=== PATIENT | female | born 1950 | race Caucasian/White ===

== ENCOUNTER 2017-04-14 08:27 | Emergency (ER) | payer MEDICARE, BC ==
[~2017-04-14] VITALS: Ht 170.2 cm; Wt 88.0 kg
[2017-04-14] MEDS ORDERED: IOHEXOL 350 MG/ML 10 ML VIAL (for RAD DIAG) IVCONTRAST ONE (08:28)
[2017-04-14 08:30] VITALS: BP 155/77; PULSE 102; RESP 14; TEMP 97.7; O2SAT 96
[2017-04-14] MEDS ORDERED: CLINDAMYCIN INJ 900 MG in SODIUM CHLORIDE 0.9% INJ 100 ML IV ONE (09:00)
[2017-04-14] MEDS ORDERED: SODIUM CHLORIDE 0.9% FLUSH 10 ML FLUSH IVF PRN (09:00)
[2017-04-14] MEDS ORDERED: CLINDAMYCIN 900 MG/NS PREMIX 50 ML IV ONE (09:15)
--- NOTE | 2017-04-14 09:20 | PD ---
HPI . Leaking surgical wound Chief Complaint: Skin Problem Time Seen by Provider: 08:42 Travel History International Travel<30 days: No Contact w/Intl Traveler<30days: No Traveled to known affect area: No History of Present Illness HPI This patient presents stating that a recent surgical wound is leaking. She is status post partial colectomy 5 weeks ago. She states that her postoperative course was complicated by staph infection. She states she was in the hospital for total 13 days. She was treated with IV antibiotics. Her wound was left open for a period of time. She states that things finally got better and that everything seemed to be proceeding normally. She states that she and her family came here yesterday for vacation. When she awakened this morning, her bed sheets and clothing or so with bloody drainage. She reports no significant pain. She has not been running a fever. She does note that the surrounding skin is red and hot today. She denies any GI symptoms. No modifying factors. PFSH Past Medical History Cardiovascular Problems: Yes (HTN) High Cholesterol: Yes Diminished Hearing: No Hypertension: Yes ?: Not Past Surgical History Abdominal Surgery: Yes (COLON RESECTION) Social History Alcohol Use: No Tobacco Use: No Substance Use: No Allergies-Medications (Allergen,Severity, Reaction): Coded Allergies: Penicillins (Verified Allergy, Severe, 04/14/17) Review of Systems Except as stated in HPI: all other systems reviewed are Neg General / Constitutional: No: Fever, Chills Skin: Positive Change in Pigmentation, Positive Other Physical Exam Narrative GENERAL: Awake and alert in no acute distress. SKIN: warm/dry. Healing surgical wound on the right lower abdominal wall with surrounding erythema. There is leakage of serosanguineous fluid. It is mildly tender to palpation. HEAD: Normocephalic. EYES: Pupils equal and round. No scleral icterus. No injection or drainage. ENT: No nasal bleeding or discharge. Mucous membranes pink and moist. NECK: Trachea midline. Full range of motion without pain.. CARDIOVASCULAR: Regular rate and rhythm. Heart sounds are normal. RESPIRATORY: No accessory muscle use. Clear to auscultation. Breath sounds equal bilaterally. GASTROINTESTINAL: Abdomen soft. Nontender. Bowel sounds present. Nondistended. Except for tenderness in the area of erythema, her abdomen is soft and nontender. : Deferred MUSCULOSKELETAL: No obvious deformities. NEUROLOGICAL: Awake and alert. No obvious cranial nerve deficits. Motor grossly within normal limits. Normal speech. PSYCHIATRIC: Appropriate mood and affect; insight and judgment normal. Data Data Last Documented VS Vital Signs Date Time Temp Pulse Resp B/P (MAP) Pulse Ox O2 Delivery O2 Flow Rate FiO2 04/14/17 08:30 97.7 102 14 155/77 (103) 96 Orders Orders Basic Metabolic Panel (Bmp) (04/14/17 08:51) Complete Blood Count With Diff (04/14/17 08:51) Blood Culture (04/14/17 08:51) Wound Culture And Gram Stain (04/14/17 08:51) Iv Access Insert/Monitor (04/14/17 08:51) Sodium Chloride 0.9% Flush (Ns Flush) (04/14/17 09:00) Lactic Acid (04/14/17 08:51) Ct Abd/Pel W Iv Contrast(Rout) (04/14/17 08:51) Clindamycin 900 Mg Premix (Cleocin 900 M (04/14/17 09:15) Iohexol 350 Inj (Omnipaque 350 Inj) (04/14/17 08:28) Labs Laboratory Tests Test 04/14/17 09:00 White Blood Count 12.9 TH/MM3 Red Blood Count 4.08 MIL/MM3 Hemoglobin 12.0 GM/DL Hematocrit 35.2 % Mean Corpuscular Volume 86.4 FL Mean Corpuscular Hemoglobin 29.5 PG Mean Corpuscular Hemoglobin Concent 34.1 % Red Cell Distribution Width 13.4 % Platelet Count 585 TH/MM3 Mean Platelet Volume 6.2 FL Neutrophils (%) (Auto) 82.5 % Lymphocytes (%) (Auto) 10.6 % Monocytes (%) (Auto) 5.9 % Eosinophils (%) (Auto) 0.5 % Basophils (%) (Auto) 0.5 % Neutrophils # (Auto) 10.6 TH/MM3 Lymphocytes # (Auto) 1.4 TH/MM3 Monocytes # (Auto) 0.8 TH/MM3 Eosinophils # (Auto) 0.1 TH/MM3 Basophils # (Auto) 0.1 TH/MM3 CBC Comment DIFF FINAL Differential Comment Blood Urea Nitrogen 15 MG/DL Creatinine 0.75 MG/DL Random Glucose 134 MG/DL Calcium Level 8.9 MG/DL Sodium Level 137 MEQ/L Potassium Level 3.6 MEQ/L Chloride Level 103 MEQ/L Carbon Dioxide Level 27.3 MEQ/L Anion Gap 7 MEQ/L Estimat Glomerular Filtration Rate 78 ML/MIN Lactic Acid Level 1.0 mmol/L [facility] Medical Decision Making Medical Screen Exam Complete: Yes Emergency Medical Condition: Yes Differential Diagnosis My differential diagnosis includes but is not limited to localized wound infection, cellulitis, abscess Narrative Course This patient presents with a problem with a surgical wound. She is status post partial colectomy 5 weeks ago. She comes in to us this morning with the acute onset of drainage of serosanguineous fluid from the wound. She has also developed erythema, warmth and swelling around the surgical wound. CBC & BMP Diagram 04/14/17 09:00 Calcium Level 8.[address] abd/pelvis: 1. There is a elongated low density track with minimal extending from skin surface to the right lateral musculature which could represent fluid at the surgical site. No internal gas and no enhancing wall.. Surrounding this is a much larger area of induration of the subcutaneous fat. There is also some mild enhancement in the lateral abdominal musculature at the surgical site. 2. Bilateral hydronephrosis. I have discussed my findings with the patient and her . She states that she feels totally well. She appears to be a very reliable patient. I would like to try to treat her as an outpatient. I have given her strict instructions to return here if she starts to feel sick. Specifically, if she develops fever or generalized malaise and weakness, she should return to the emergency department. Sepsis Criteria SIRS Criteria (2 or more): Heart rate over 90, WBC > 56485, < 4000 or > 10% bands Sepsis Criteria (SIRS+source): Infect source susp/known Criteria Outcome: Meets SIRS criteria, Meets sepsis criteria Diagnosis Primary Impression: Sepsis affecting skin Patient Instructions: Cellulitis (DC), General Instructions Med/Other Pt SpecificInfo: Prescription(s) given Scripts Clindamycin (Clindamycin) 300 Mg Cap 600 MG PO Q8H for Infection for 10 Days, #60 CAP 0 Refills Prov: Theresa Crooks MD 04/14/17 Disposition: 01 DISCHARGE HOME Condition: Stable Theresa Crooks MD Apr 14, 2017 09:20
[2017-04-14 09:34] LABS: AUTOMATED NEUTROPHIL # 10.6 TH/MM3 (1.8-7.7); BASOPHIL # 0.1 TH/MM3 (0-0.2); BASOPHIL % 0.5 % (0.0-2.0); EOSINOPHIL # 0.1 TH/MM3 (0-0.4); EOSINOPHIL % 0.5 % (0.0-4.0); HEMATOCRIT 35.2 % (35.0-46.0); HEMO FLAGS DIFF FINAL; LYMPH % 10.6 % (9.0-44.0); LYMPHOCYTE # 1.4 TH/MM3 (1.0-4.8); MEAN CELL VOLUME 86.4 FL (80.0-100.0); MEAN CORPUSCULAR HEMOGLOBIN 29.5 PG (27.0-34.0); MEAN CORPUSCULAR HGB CONC 34.1 % (32.0-36.0); MONO % 5.9 % (0.0-8.0); NEUT % 82.5 % (16.0-70.0); PLATELET COUNT 585 TH/MM3 (150-450); RED BLOOD COUNT 4.08 MIL/MM3 (4.00-5.30); RED CELL DISTRIBUTION WIDTH 13.4 % (11.6-17.2); WHITE BLOOD COUNT 12.9 TH/MM3 (4.0-11.0)
[2017-04-14 09:53] LABS: BICARBONATE 27.3 MEQ/L (21.0-32.0); POTASSIUM 3.6 MEQ/L (3.5-5.1)
--- NOTE | 2017-04-14 10:43 | RADRPT ---
EXAM DATE/TIME: 04/14/2017 10:04 [facility] COMPARISON: No previous studies available for comparison. INDICATIONS : Post surgical wound check, wound leaking. Evaluate for abscess. IV CONTRAST: 85 cc Omnipaque 350 (iohexol) IV ORAL CONTRAST: No oral contrast ingested. RADIATION DOSE: 15.70 CTDIvol (mGy) MEDICAL HISTORY : None SURGICAL HISTORY : colon resection 5 weeks ago ENCOUNTER: Initial ACUITY: 1 day PAIN SCALE: 5/10 LOCATION: abdomen TECHNIQUE: Volumetric scanning of the abdomen and pelvis was performed. Using automated exposure control and ad justment of the mA and/or kV according to patient size, radiation dose was kept as low as reasonably achievable to obtain optimal diagnostic quality images. DICOM format image data is available electro nically for review and comparison. FINDINGS: LOWER LUNGS: The visualized lower lungs are clear. Small hiatus hernia. LIVER: Homogeneous density without lesion. There is no dilation of the biliary tree. No calcified gallston es. SPLEEN: Normal size without lesion. PANCREAS: Within normal limits. KIDNEYS: There is dilation of the collecting system of both kidneys with normal dimension above the proximal u reters and a change in diameter at the level of the ureteropelvic junction. No calcified stones seen . The appearance favors hydronephrosis versus parapelvic cysts in so far as the low density areas de monstrate a branching pattern expanding into the region of the calyces bilaterally. There is symmetr ic enhancement of the parenchyma of both kidneys. Small exophytic cyst off the inferior pole of the right kidney. ADRENAL GLANDS: Within normal limits. VASCULAR: There is no aortic aneurysm. BOWEL/MESENTERY: No dilated loops of small or large bowel. Anastomosis suture in the right lateral abdomen at site of recent colonic surgery. No free fluid in the abdomen or pelvis. ABDOMINAL WALL: Prominent large area of induration of the subcutaneous fat in the right lateral abdominal wall at sit e of prior surgery with the induration measuring in excess of 10 cm in width. In the central portion , there is an elongated low density track which appears to have a thin wall and extends from skin eliazar face to the surface of the musculature measuring 2.6 cm in superior/inferior extent.. Mean CT densit y is approximately 16 Hounsfield units. No gas within this hypodense area. RETROPERITONEUM: There is no lymphadenopathy. BLADDER: No wall thickening or mass. REPRODUCTIVE: Within normal limits. INGUINAL: There is no lymphadenopathy or hernia. MUSCULOSKELETAL: Within normal limits for patient age. CONCLUSION: 1. There is a elongated low density track with minimal extending from skin surface to the right later al musculature which could represent fluid at the surgical site. No internal gas and no enhancing wa ll.. Surrounding this is a much larger area of induration of the subcutaneous fat. There is also so me mild enhancement in the lateral abdominal musculature at the surgical site. 2. Bilateral hydronephrosis. Chester Banegas MD on April 14, 2017 at 10:33 Board Certified Radiologist. This report was verified electronically.
[2017-04-14] MEDS ORDERED: CLIN300C5 PO (10:57)
[2017-04-14 11:18] VITALS: BP 131/76
== END 2017-04-14 11:45 | disposition home or self-care (01) ==
LOC: NEPC 08:27
DX: A41.89 Other specified sepsis (principal); T81.4XXA Infection following a procedure, initial encounter; B95.7 Other staphylococcus as the cause of diseases classified elsewhere; Z16.19 Resistance to other specified beta lactam antibiotics; Z16.23 Resistance to quinolones and fluoroquinolones; Z16.11 Resistance to penicillins; I10 Essential (primary) hypertension; Z90.49 Acquired absence of other specified parts of digestive tract
CPT/HCPCS: 74177; 80048; 83605; 85025; 86403; 87040; 87070; 87077; 87186; 87205; 96374; 99285; Q9967